=== PATIENT | male | born 1965 | race Caucasian/White ===

== ENCOUNTER 2016-06-08 13:51 | Emergency (ER) | payer BC, MEDICAID ==
[~2016-06-08] VITALS: Wt 72.0 kg
[2016-06-08 13:55] VITALS: Wt 72.0 kg
[2016-06-08] MEDS ORDERED: KETOROLAC 60 MG INJ IM STA (14:55)
[2016-06-08] MEDS ORDERED: IBUP-1542 PO (16:04)
--- NOTE | 2016-06-08 16:04 | ERD ---
ER Documentation Chief Complaint Date/Time DATE: 06/08/16 TIME: 15:57 Chief Complaint Left knee injury after running last night HPI 51-year-old male patient with no significant past medical history presents to the ED complaining of a left knee injury that occurred last night after he was running. Patient states that he felt his knee go backwards and felt a pop-like sensation when it was twisted while running. States that he fell but denies any head or neck trauma. Denies any loss of consciousness. Denies any fever, chills, loss of sensation, loss of range of motion. ROS All systems reviewed and are negative except as per history of present illness. Allergies Allergies: Coded Allergies: No Known Allergy (Unverified , 06/08/16) PMhx/Soc Medical and Surgical Hx: pt denies Medical Hx, pt denies Surgical Hx Hx Alcohol Use: No Hx Substance Use: No Hx Tobacco Use: No Physical Exam Vitals Vital Signs Date Time Temp Pulse Resp B/P Pulse Ox O2 Delivery O2 Flow Rate FiO2 06/08/16 13:55 98.0 79 18 136/70 99 Physical Exam Const: [id number]-[id number], well-nourished. In no acute distress. Head: Atraumatic, normocephalic. No hematoma. No rabago sign. Eyes: Normal Conjunctiva without injection. No purulent discharge. PERRLA. EOMI ENT: Normal external ear. Ear canal without erythema. Tympanic membrane pearly almendarez without effusion or bulging. No hemotympanum. Nasal canal clear with normal turbinates. Moist oropharynx without tonsillar exudates. Non- erythematous pharynx. Uvula midline. No drooling. No trismus. Neck: No cervical midline tenderness. Full range of motion. No meningismus. No cervical lymphadenopathy. No JVD. Resp: Clear to auscultation bilaterally. No wheezing, rhonchi, rales, or crackles. No accessory muscle use. No retractions. Cardio: Regular rate and rhythm. No murmurs, rubs or gallops. Skin: Normal skin turgor. No petechiae or rashes Back: No midline tenderness. No CVA tenderness. Ext: No cyanosis, or edema. Distal pulses intact bilaterally. Tenderness to palpation of the left popliteal fossa. No tenderness to palpation of the patella or lateral or medial ligaments. No erythema, edema, ecchymosis, deformities. Patient was able to flex, extend bilateral knees. Patient is ambulating however with a limp. Unable to perform special knee tests at this time due to patient's pain. All other extremities have full range of motion. Neur: Awake and alert. Limping gait due to pain. Cranial Nerves II- VII intact. Normal finger to nose. Muscle strength 5/5. Sensation intact. Psych: Normal Mood and Affect Results 24 hrs Current Medications Medications (Trade) Dose Ordered Sig/Betty Route PRN Reason Start Time Stop Time Status Last Admin Dose Admin Ketorolac Tromethamine (Toradol) 60 mg ONCE STAT IM 06/08/16 14:55 06/08/16 14:56 DC 06/08/16 15:20 Procedures/MDM This is a 51-year-old male patient with no significant past medical history presents the ED complaining of a left knee injury that started last night after running. Patient is afebrile and nontoxic-appearing. Patient has normal vital signs. A left knee x-ray was ordered to further evaluate patient. Patient was given Toradol 60 mg IM with improvement of his pain. Pending the x-ray results , this patient has been signed off to my colleague, Jose Jonas PA-C for further evaluation and treatment for crutches and daphne wrap/knee immobilizer. Left knee xray pending to rule out any fractures or dislocations. Patient may need to follow up with orthopedic physician to rule out meniscus/ ligamentous injury. Patient's extremity symptoms have stabilized while they have been evaluated in the department and are appropriate for outpatient follow up. No evidence of compartment syndrome, neurologic injury, vascular injury, open joint, open fracture, tendon laceration, septic arthritis, osteomyelitis, DVT, foreign body, or other emergent conditions. Departure Diagnosis: Primary Impression: Knee injury Encounter type: initial encounter Laterality: left Qualified Code: S89.92XA - Knee injury, left, initial encounter Condition: Stable JEANMARIE CASE PA-C Jun 08, 2016 16:04
--- NOTE | 2016-06-08 16:28 | RADRPT ---
PROCEDURE: XR Knee. CLINICAL INDICATION: Injury TECHNIQUE: Three views of the left knee are available for review. COMPARISON: None available FINDINGS: The medial and lateral femorotibial compartments are preserved, as is the patellofemoral compartment . There is no acute osseous abnormality, marginal erosion or evidence of fracture. A joint effusion is present. IMPRESSION: 1. No acute osseous abnormality. 2. Joint effusion. RPTAT: UU .Ian Farley MD, MD Date Time Electronically viewed and signed by .Ian Farley MD, MD on 06/08/2016 16:27 .d/
--- NOTE | 2016-06-08 16:34 | EN ---
Date/Time of Note Date/Time of Note DATE: 06/08/16 TIME: 16:31 ER Progress Note Patient was handed over to md from Izzy ZAMORA. Patient was stable at transfer to md while pending xr results. Knee xray results as read by radiologist unremarkable for fracture or dislocation but positive for joint effusion. Low suspicion for dislocation, fracture, septic joint, compartment syndrome, osteomyelitis, avascular necrosis, DVT, Achilles tendon rupture, cellulitis. At this time, unable to rule out any tendon and ligament injuries. Patient was given a knee immobilizer with crutches. Patient was neurovascularly intact post knee immobilizer placement. At this time, patient is stable for discharge and outpatient management with no new complaints during the ER course. Patient was sent home with copy of x-ray reports and to follow-up with orthopedics this week. Names of orthopedics were given to patient.. Patient will be discharged home with instructions to recheck for new or worsening symptoms such as fever, nausea, weakness, LOC and to follow up with primary care in the next 1-2 days. Patient was advised to return to the ER for any new or worsening symptoms. Plan was discussed and patient and/ or family understands and agrees. Home instructions were given. BEVERLEY BENDER PA-C Jun 08, 2016 16:34
[2016-06-08 17:16] VITALS: BP 103/61; PULSE 67; RESP 16; TEMP 97.4
== END 2016-06-08 17:18 | disposition home or self-care (01) ==
LOC: FTE 13:51
DX: S89.92XA Unspecified injury of left lower leg, initial encounter (principal); X50.9XXA Other and unspecified overexertion or strenuous movements or postures, initial encounter; Y92.9 Unspecified place or not applicable
CPT/HCPCS: 29505; 73562; 96372; J1885; Z7502

== ENCOUNTER 2016-07-26 11:20 | Day surgery (SDC) | payer OTHER ==
[2016-07-26] VITALS (9 sets, daily range): BP systolic 108–123; BP diastolic 69–85; PULSE 62–77; RESP 12–23; Ht 165.1 cm; Wt 71.8 kg
[~2016-07-26] VITALS: Ht 165.1 cm; Wt 71.8 kg
[~2016-07-26 11:20] MED LIST: CEFAZOLIN 1 GM INJ ONE; IBUP-1542 PO; ONDANSETRON 4 MG INJ ONE
[2016-07-26] MEDS ORDERED: ROPIVACAINE 0.5 % 30 ML VIAL ONE ×2 (13:28→13:57)
[2016-07-26] MEDS ORDERED: POLYMYXIN/BACITRACIN 1L IRRIG ONE (13:28)
[2016-07-26] MEDS ORDERED: BUPIVACAINE 0.5%/EPI (SDV) 30 ML INJ ONE (13:28)
[2016-07-26] MEDS ORDERED: hydrALAzine 20 MG INJ IV PRN ×2 (13:30→16:30)
[2016-07-26] MEDS ORDERED: KETOROLAC 30 MG INJ IV PRN ×2 (13:30→16:30)
[2016-07-26] MEDS ORDERED: MEPERIDINE 25 MG INJ IV PRN ×2 (13:30→16:30)
[2016-07-26] MEDS ORDERED: ONDANSETRON 4 MG INJ IV PRN ×5 (13:30→16:30)
[2016-07-26] MEDS ORDERED: NALOXONE (0.4 MG/ML) INJ IV PRN ×2 (13:30→16:30)
[2016-07-26] MEDS ORDERED: DIPHENHYDRAMINE 50 MG INJ IV PRN ×4 (13:30→16:30)
[2016-07-26] MEDS ORDERED: LABETALOL HCL 20MG INJ IV PRN ×2 (13:30→16:30)
[2016-07-26] MEDS ORDERED: FENTAnyl 50 MCG/ML VIAL IV PRN ×5 (13:30→16:30)
[2016-07-26] MEDS ORDERED: EPHEDrine SULFATE 50 MG/5 ML SYG IV PRN ×2 (13:30→16:30)
[2016-07-26] MEDS ORDERED: ZOLPIDEM 5 MG TAB PO PRN (13:30)
[2016-07-26] MEDS ORDERED: HYDROmorphONE 0.2 MG/ML PCA IV SCH (13:30)
[2016-07-26] MEDS ORDERED: OXYCODONE/ACETAMINOPHEN (5/325) TAB PO PRN ×4 (13:30→16:30)
[2016-07-26] MEDS ORDERED: HYDROmorphONE (0.2 MG/ML) 10ML SYG IV PRN ×5 (13:30→16:30)
[2016-07-26] MEDS ORDERED: LIDOCAINE 2% (SDV) 5 ML INJ ONE (13:52)
[2016-07-26] MEDS ORDERED: PROPOFOL 20 ML ONE (13:52)
[2016-07-26] MEDS ORDERED: MIDAZOLAM 1 MG/ML 2 ML INJ ONE (13:54)
--- NOTE | 2016-07-26 13:55 | HPN ---
Date/Time of Note Date/Time of Note DATE: 07/26/16 TIME: 13:55 Interval H&P Admission Note Pt. seen H&P reviewed: No system changes CHIOMA CARRENO MD Jul 26, 2016 13:55
[2016-07-26] MEDS ORDERED: DEXAMETHASONE 4 MG/ML 1 ML INJ ONE (15:46)
[2016-07-26] MEDS ORDERED: GLYCOPYRROLATE 1 MG INJ ONE (15:49)
[2016-07-26] MEDS ORDERED: NEOSTIGMINE 3 MG/3 ML SYRINGE ONE (15:49)
[2016-07-26] MEDS ORDERED: KETOROLAC 30 MG INJ ONE (15:53)
[2016-07-26] MEDS ORDERED: HYDROCODONE/APAP (10/325) TAB PO PRN (16:00)
[2016-07-26] MEDS ORDERED: HYDROCODONE/APAP (5/325) TAB PO PRN (16:00)
[2016-07-26] MEDS ORDERED: morphine 10 MG INJ IV PRN (16:00)
--- NOTE | 2016-07-26 16:21 | OPR ---
DATE OF OPERATION: 07/26/2016 PREOPERATIVE DIAGNOSIS: Left knee anterior cruciate ligament tear. POSTOPERATIVE DIAGNOSIS: Left knee anterior cruciate ligament tear. OPERATION PERFORMED: Left knee arthroscopically assisted anterior cruciate ligament reconstruction using allograft tissue. SURGEON: Damon Giraldo MD VP BIOLOGY: MICHAEL Guaman ANESTHESIA: General endotracheal anesthesia with adductor canal block. ANESTHESIOLOGIST: Dr. Ballesteros. OPERATIVE FINDINGS: Full thickness tear of the ACL scarred into the notch. INDICATION: Mr. Yogi Ny is active 51-year-old male who sustained injury to his left knee with an ACL with a full thickness tear. He has had continued problems with instability, has failed nono perative treatment and now presents for the above listed procedure. Risks and benefits were discuss ed with the patient, risks including but not limited to infection, bleeding, blood clots, retear, st iffness, hardware failure, hardware prominence, fracture along with other medical, anesthetic and snider rgical complications were discussed. Informed consent was obtained. DESCRIPTION OF PROCEDURE: The patient's correct extremity was identified in the preoperative area. He was brought back to the operating room where he had general endotracheal anesthesia, he had an a dductor canal block. Left lower extremity was prepped and draped in standard sterile manner. A kym e-out was performed. I then used an Esmarch thigh tourniquet that was inflated to 250 mmHg. I then made standard medial and lateral portal incisions and I introduced the arthroscope. The medial late ral compartment was intact. The patellofemoral compartment was intact. The notch revealed that the ACL was fully torn. I debrided the stump back to the tibial origin. I then did a notchplasty. I justin dickerson made a tibial ACL tunnel using a [employer] ACL guide. I then used a 2 mm offset guide an sarah made my femoral tunnel. The graft which had previously been prepared on the back table to fit thr ough a 10 mm tunnel was passed over a Beath pin. I then fixed the graft on the femoral side with an 8 x 25 bioabsorbable screw from [employer]. I then ranged the knee 25 times and fixed the gr aft on the femoral side with a 9 x 25 screw while applying a posterior drawer maneuver. I then went back in the joint. There was no impingement to full extension. There was full range of motion of the knee. I then let down the tourniquet, obtained adequate hemostasis. The deeper tissue along th e anterior medial incision was closed with 0 Vicryl, subcutaneous tissue with 2-0 Vicryl, skin with a running 3-0 Monocryl. Steri-Strips were applied. Dry sterile dressings were applied. Patient wa s then extubated and transported to recovery in stable condition. His foot was warm and well perfus ed with 2+ dorsalis pedis pulse. He was placed in a knee immobilizer. Dictated By: DAMON CARRENO MD, RA/CARLOZ Conf#: [id number] DID#: [id number] CC: JED RODRIGUEZ;*EndCC*
[2016-07-26] MEDS ORDERED: METOCLOPRAMIDE 10 MG INJ IV PRN (16:30)
[2016-07-26] MEDS ORDERED: HYDROmorphONE 1 MG/ML SYG IV PRN ×3 (16:30)
[2016-07-27] MEDS ORDERED: ASPIRIN (EC) 325 MG TAB PO SCH (09:00)
== END 2016-07-26 18:20 | disposition home or self-care (01) ==
LOC: SDS 11:20
PROVIDERS: ATTEND Specialist
DX: S83.512D Sprain of anterior cruciate ligament of left knee, subsequent encounter (principal); X58.XXXD Exposure to other specified factors, subsequent encounter
CPT/HCPCS: 29888; C1713; C1762; J0690; J1100; J1885; J2250; J2405; J2710; J2795; J3010; Z7512; Z7610